=== PATIENT | female | born 1980 | race Caucasian/White ===

== ENCOUNTER 2017-10-21 09:05 | Emergency (ER) | payer OTHER ==
[~2017-10-21] VITALS: Ht 170.2 cm; Wt 76.4 kg
[2017-10-21 09:45] LABS: BASOPHIL (%) 0.5 % (0-1); EOSINOPHIL (%) 0.8 % (0-5); EOSINOPHIL COUNT 0.1 K/uL (0-0.3); HEMATOCRIT 37.8 % (36.0-46.0); HEMOGLOBIN 13.3 G/DL (11.9-15.5); IMMATURE GRANULOCYTE (%) 0.2 % (0.0-0.7); LYMPHOCYTE (%) 15.7 % (15-42); LYMPHOCYTE COUNT 1.4 K/uL (1.0-2.8); MCH 29.4 PG (29.0-34.0); MCHC 35.2 G/DL (30.0-36.0); MCV 83.4 FL (83-99); MONOCYTE (%) 3.7 % (3-12); MONOCYTE COUNT 0.3 K/uL (0-0.8); NEUTROPHIL (%) 79.1 % (45-76); NEUTROPHIL COUNT 6.8 K/uL (1.8-6.4); PLATELET COUNT 274 K/uL (156-360); RBC DIS.WIDTH-SD 36.3 % (39-53); RED BLOOD COUNT 4.53 M/uL (3.80-5.20); WHITE BLOOD COUNT 8.6 K/uL (4.1-10.2)
[2017-10-21 09:50] LABS: APPEARANCE SL.HAZY ((CLEAR)); BILIRUBIN NEGATIVE; BLOOD LARGE; COLOR YELLOW ((YELLOW)); GLUCOSE (STRIP) NEGATIVE; KETONES NEGATIVE; LEUKOCYTES NEGATIVE; NITRITE NEGATIVE; PROTEIN (STRIP) 100; SPECIFIC GRAVITY 1.019 (1.000-1.030); UROBILINOGEN 0.2 MG/DL (0.2-1.0)
[2017-10-21 10:12] LABS: ALBUMIN 3.9 g/dL (3.2-4.8)
[2017-10-21 10:13] LABS: CHLORIDE 106 mEq/L (99-109); POTASSIUM 3.8 mEq/L (3.7-5.4); SODIUM 140 mEq/L (136-147)
[2017-10-21 10:15] LABS: GLUCOSE 128 mg/dL (70-99); TOTAL PROTEIN 6.9 g/dL (6.4-8.3)
[2017-10-21 10:17] LABS: TOTAL BILIRUBIN 0.5 mg/dL (0.0-1.0)
[2017-10-21 10:18] LABS: ALKALINE PHOSPHATASE 80 IU/L (3-129)
[2017-10-21 10:19] LABS: CREATININE 0.6 mg/dL (0.6-1.3); GFR ESTIMATE (CALCULATED) > 59 mL/min/
[2017-10-21 10:20] LABS: AST (GOT) 14 IU/L (2-34); UREA NITROGEN (BUN) 11 mg/dL (9-23)
[2017-10-21 10:22] LABS: ALT (GPT) 16 IU/L (3-49); LIPASE 19 U/L (1.0-51.0)
[2017-10-21 10:27] LABS: RED BLOOD CELLS 30-40 /HPF (0-5); WHITE BLOOD CELLS RARE /HPF (0-5)
[2017-10-21 10:28] LABS: BACTERIA 1+ /HPF; EPITHELIAL CELLS 2+ /HPF; MUCUS 2+ /LPF
[2017-10-21 10:33] LABS: QUANTITATIVE HCG < 4.0 MIU/ML
[2017-10-21] MEDS ORDERED: PERCOCET 5/31 TABLET PO (13:22)
[2017-10-21] MEDS ORDERED: FLOMAX0.4 MG PO (13:22)
[2017-10-21] MEDS ORDERED: ZOFRAN4 MG PO (13:22)
[2017-10-21] MEDS ORDERED: CIPRO500 MG PO (13:24)
[2017-10-21 14:09] VITALS: BP 130/84
== END 2017-10-21 14:11 | disposition home or self-care (01) ==
LOC: EME 09:05
PROVIDERS: Emergency Medicine
DX: N20.2 Calculus of kidney with calculus of ureter (principal); Z88.0 Allergy status to penicillin
CPT/HCPCS: 74177; 80053; 81003; 83690; 84702; 85025; 99281; 99284; J1885; J2405; J7030